=== PATIENT | male | born 1950 | race Caucasian/White ===

== ENCOUNTER 2017-12-07 12:57 | Day surgery (SDC) | payer BC ==
[2017-12-07] MEDS ORDERED: PROPOFOL 20 ML (15:52)
[2017-12-07] MEDS ORDERED: MIDAZOLAM 1 MG/ML 2 ML INJ (15:52)
[2017-12-07] MEDS ORDERED: FENTAnyl 50 MCG/ML VIAL (15:52)
== END 2017-12-07 17:13 | disposition home or self-care (01) ==
LOC: GIL 12:57
DX: Z12.11 Encounter for screening for malignant neoplasm of colon (principal); K64.8 Other hemorrhoids; I10 Essential (primary) hypertension; E11.9 Type 2 diabetes mellitus without complications
CPT/HCPCS: 45378; 82962